=== PATIENT | male | born 1995 | race Caucasian/White ===

== ENCOUNTER 2018-03-22 23:19 | Emergency (ER) | payer MEDICAID, OTHER ==
[~2018-03-22] VITALS: Ht 180.3 cm; Wt 95.0 kg
[2018-03-23] MEDS ORDERED: IBUPROFEN 600MG TABLET PO ONE (03:30)
[2018-03-23 03:53] LABS: BASOPHILS % 0.4 % (0.0-2.0); EOSINOPHILS % 3.6 % (0.0-5.0); HEMATOCRIT. 44.7 % (42.0-52.0); HEMOGLOBIN. 15.3 g/dL (14.0-18.0); LYMPHOCYTES % 20.5 % (20.0-50.0); MEAN CORPUSCULAR HEMOGLOBIN 31.4 pg (28.0-32.0); MEAN CORPUSCULAR VOLUME 91.9 fL (80.0-94.0); MEAN PLATELET VOLUME 9.6 fl (7.4-10.4); NEUTROPHILS % 63.5 % (40.0-76.0); PLATELET 196 x1000/uL (130-400); RED BLOOD CELL COUNT 4.86 mill/uL (4.7-6.1); RED CELL DISTRIBUTION WIDTH 13.4 % (11.6-14.6)
[2018-03-23 03:56] LABS: CHLORIDE 101 mEq/L (98-107)
[2018-03-23 03:57] LABS: CLARITY URINE CLEAR (CLEAR); COLOR URINE YELLOW (YELLOW); KETONES URINE NEGATIVE (NEGATIVE); LEUKOCYTE ESTERASE URINE NEGATIVE (NEGATIVE); NITRITE URINE NEGATIVE (NEGATIVE); OCCULT BLOOD URINE NEGATIVE (NEGATIVE); PROTEIN URINE NEGATIVE (NEGATIVE); SPECIFIC GRAVITY URINE 1.031 (1.005-1.030)
[2018-03-23 03:59] LABS: INR 1.1; PROTHROMBIN TIME 11.2 sec (9.4-11.6)
[2018-03-23] MEDS ORDERED: MAGNESIUM/ALUMINUM HYDROXIDE/SIMETHICONE 30ML UDC PO STA (06:14)
[2018-03-23 06:38] VITALS: BP 105/56
== END 2018-03-23 07:10 | disposition home or self-care (01) ==
LOC: ER 23:19
DX: R07.81 Pleurodynia (principal); R16.0 Hepatomegaly, not elsewhere classified; F17.200 Nicotine dependence, unspecified, uncomplicated
CPT/HCPCS: 36415; 71045; 76705; 80053; 81003; 83690; 85025; 85610; 99285

== ENCOUNTER 2024-12-09 22:34 | Emergency (ER) | payer MEDICARE ==
[~2024-12-09] VITALS: Ht 177.8 cm; Wt 91.0 kg
[2024-12-09] MEDS: LORAZEPAM 2MG/ML INJ IV STA (00:56)
[2024-12-09 22:35] VITALS: TEMP 37.1; O2SAT 98
[2024-12-10 00:36] LABS: HEMATOCRIT. 44.9 % (42.0-52.0); HEMOGLOBIN. 15.3 g/dL (14.0-18.0); MEAN CORPUSCULAR HEMOGLOBIN 32.2 pg (28.0-32.0); MEAN CORPUSCULAR HGB CONC 34.1 g/dL (31.0-37.0); MEAN CORPUSCULAR VOLUME 94.3 fL (80.0-94.0); MEAN PLATELET VOLUME 9.1 fl (7.4-10.4); PLATELET 204 x1000/uL (130-400); RED BLOOD CELL COUNT 4.76 mill/uL (4.7-6.1); RED CELL DISTRIBUTION WIDTH 13.9 % (11.6-14.6); WHITE BLOOD COUNT 16.6 x1000/uL (4.5-11.0)
[2024-12-10 00:38] LABS: CHLORIDE 108 mEq/L (98-107); POTASSIUM 3.5 mEq/L (3.5-5.1); SODIUM 140 mEq/L (136-145)
[2024-12-10 00:39] LABS: CALCIUM 9.4 mg/dL (8.7-10.4); CARBON DIOXIDE 20 mEq/L (21-32)
[2024-12-10 00:44] LABS: CREATININE 1.3 mg/dL (0.6-1.3); ETHANOL BLOOD 32 mg/dL (<10); GLUCOSE 136 mg/dL (70-105); UREA NITROGEN BLOOD 13 mg/dL (9-23)
[2024-12-10 00:45] LABS: TROPONIN I HIGH SENSITIVITY 14 ng/L (3.0-53)
[2024-12-10 00:46] LABS: DIFFERENTIAL COMMENT 1
[2024-12-10] MEDS: SODIUM CHLORIDE 0.9% 1,000 ML IV ONE (00:55)
[2024-12-10 01:33] LABS: *AMPHETAMINES SCREEN URINE NEGATIVE (NEGATIVE); *BARBITURATES SCREEN URINE NEGATIVE (NEGATIVE); *BENZODIAZEPINES SCREEN URINE NEGATIVE (NEGATIVE); *COCAINE SCREEN URINE PRESUMPTIVE POSITIVE (NEGATIVE); CANNABINOID URINE SCREEN NEGATIVE (NEGATIVE); ECSTASY MDMA SCREEN URINE NEGATIVE (NEGATIVE); METHADONE URINE SCREEN NEGATIVE (NEGATIVE); OPIATES URINE SCREEN NEGATIVE (NEGATIVE); PHENCYCLIDINE URINE SCREEN NEGATIVE (NEGATIVE)
[2024-12-10 02:10] LABS: TROPONIN I HIGH SENSITIVITY 21 ng/L (3.0-53)
[2024-12-10 03:07] VITALS: BP 134/65; PULSE 114; RESP 22; O2SAT 98
[2024-12-10 03:58] LABS: PLATELET ESTIMATE NORMAL
== END 2024-12-10 03:19 | disposition home or self-care (01) ==
LOC: ER 22:34
DX: T40.5X1A Poisoning by cocaine, accidental (unintentional), initial encounter (principal); R00.0 Tachycardia, unspecified; I10 Essential (primary) hypertension; Y92.9 Unspecified place or not applicable
CPT/HCPCS: 36415 ×2; 71045; 70450; 99291; 80305; 80048; 80320; 85025; 84484; 96360; J7030; Z7610 ×2; G0480